=== PATIENT | male | born 1935 | race Caucasian/White ===

== ENCOUNTER 2018-11-01 14:41 | Outpatient (CLI) | payer MEDICARE, BC | END 2018-11-01 23:59 | disposition home or self-care (01) | LOC: 64 CT 14:41 | PROVIDERS: ATTEND Surgery | DX: K40.90 Unilateral inguinal hernia, without obstruction or gangrene, not specified as recurrent (principal); R91.1 Solitary pulmonary nodule; Z87.891 Personal history of nicotine dependence | CPT/HCPCS: 74176 ==